=== PATIENT | female | born 2005 | race Caucasian/White ===

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

== ENCOUNTER 2024-03-11 17:39 | Emergency (ER) | payer OTHER, SELFPAY ==
[2024-03-11 17:40] VITALS: BP 105/70; PULSE 85; PULSE 86; RESP 14; TEMP 36.1; O2SAT 100; O2SAT 99; BMI 24.6
--- NOTE | 2024-03-11 18:03 | EDS_ITS ---
HPI <BERRY Mast - Last Filed: 03/11/24 20:49> History of Present Illness Chief Complaint: Laceration Narrative Narrative: Patient presenting today due to a left third finger laceration. She reports that she was using a wood jointer and accidentally got her finger stuck inside. She thinks that her tetanus is up-to-date. She is right-handed. PFSH <BERRY Mast - Last Filed: 03/11/24 20:49> PFSH Medical History Depression Anxiety Home Medications ?Medication ?Instructions ?Recorded ?Last Taken ?Type cephalexin 500 mg capsule 500 mg PO Q8H 7 days #21 CAPSULES 03/11/24 Unknown Rx oxycodone-acetaminophen 5 mg-325 1 tab PO Q8H PRN pain 3 days #10 03/11/24 Unknown Rx mg tablet (Endocet) tabs Allergy/AdvReac Type Severity Reaction Status Date / Time No Known Allergies Allergy Verified 03/11/24 17:44 Surgical History History of ear surgery Social History Smoking Status: Never smoker ROS <BERRY Mast - Last Filed: 03/11/24 20:49> ROS ED Constitutional Constitutional ED: Denies chills or fever(s) Musculoskeletal Musculoskeletal: Reports arthralgias Integumentary Reports laceration Neurologic Neurologic: Denies paresthesias EXAM <BERRY Mast - Last Filed: 03/11/24 20:49> Physical Exam Const Vital Signs: 03/11/24 17:40 03/11/24 17:40 Temperature 97.0 F L Temperature Source Temporal Pulse Rate 85 86 Respiratory Rate 14 14 Blood Pressure 105/70 105/70 Blood Pressure Mean 81 81 Pulse Ox 100 99 Oxygen Delivery Method Room Air Room Air Positive well nourished, well developed and no apparent distress General Appearance ED: well developed HEENT Reports normocephalic and head/scalp atraumatic Mouth ED: Yes moist mucous membranes normal Eyes PERRL and EOMs intact bilaterally Neck full ROM Chest Wall inspection of chest normal Resp normal respiratory effort and clear to auscultation bilaterally Cardio regular rate and regular rhythm Back/Spine normal ROM and normal to inspection Extremity Extremity Narrative: Amputation to the distal phalanx of the left third finger. Left radial pulse 2+, good capillary refill, sensation intact. Neuro oriented x3, CN's II-XII intact bilaterally, moves all extremities, no focal motor deficits and no sensory deficits noted Sensorium / Orientation: awake and alert Psych mental status grossly normal and thought process normal [facility] <BERRY Mast - Last Filed: 03/11/24 20:49> [facility] Narrative Medical decision making narrative: Patient presenting today with a laceration to her left third finger after using a wood jointer this evening. She does have an amputation to the distal phalanx. Her tetanus is up-to-date. She was given a gram of Ancef here. Digital block performed with 1% lidocaine for pain control. We then did discuss the case with orthopedic hand surgeon, he recommends tacking down the remaining dermal tissue over the wound to provide coverage. This was then bandaged and finger was placed in a splint. She tolerated procedure well. She will be given a prescription for Keflex and Percocet. She is to follow-up with Ortho hand. Patient discharged in stable condition. I have personally performed a face to face assessment of the patient and have reviewed the NICKO Note. I performed a substantive portion of the visit including all aspects of the following. My simon findings include: History is [patient presents with injury to the left long finger. Patient states that she was using a joint to her when she accidentally lacerated her finger and amputated the distal tip. Patient is right-hand dominant. She is up-to-date on tetanus.] Exam is [HEENT-PERRLA, EOMI. Cranial nerves II through XII grossly intact. TMs clear. Mucous membranes moist. No adenopathy. Cardiovascular-regular rate and rhythm without murmur or ectopy Lungs-clear to auscultation, chest wall stable without crepitus or subcu emphysema Abdomen-normoactive bowel sounds, soft, nontender, no rebound or rigidity, no peritoneal signs. Extremities-intact ?4, normal range of motion, normal pulses. Left long finger-patient has amputation of the distal phalanx of the long finger. There is a flap of skin volarly pad of the distal phalanx.] Medical Decison Making [patient had a digital block performed with good anesth esia. X-rays of the long finger obtained showed a complete amputation of the distal phalanx and fracture through the head of the middle phalanx that is oblique. I did discuss case with orthopedic hand surgeon Dr. Watson to [facility]. He asked that I temporize the wound and try to obtain coverage with the subcutaneous tissue and dermal tissue that is palmar to cover the exposed middle phalanx. He asked that we start patient on antibiotics and apply splint that he will be happy to see you in the office for formal revision at a later time. Physician office administrative assistant will sutured the flap over the head of the middle phalanx.] Other additions or changes: [None] Radiography X-Ray: Read by ED Physician <Dr. Ale Valdovinos, DO - Last Filed: 03/11/24 18:36> [facility] MDM Narrative Medical decision making narrative: I have personally performed a face to face assessment of the patient and have reviewed the NICKO Note. I performed a substantive portion of the visit including all aspects of the following. My simon findings include: History is [patient presents with injury to the left long finger. Patient states that she was using a joint to her when she accidentally lacerated her finger and amputated the distal tip. Patient is right-hand dominant. She is up-to-date on tetanus.] Exam is [HEENT-PERRLA, EOMI. Cranial nerves II through XII grossly intact. TMs clear. Mucous membranes moist. No adenopathy. Cardiovascular-regular rate and rhythm without murmur or ectopy Lungs-clear to auscultation, chest wall stable without crepitus or subcu emphysema Abdomen-normoactive bowel sounds, soft, nontender, no rebound or rigidity, no peritoneal signs. Extremities-intact ?4, normal range of motion, normal pulses. Left long finger- patient has amputation of the distal phalanx of the long finger. There is a flap of skin volarly pad of the distal phalanx.] Medical Decison Making [patient had a digital block performed with good anesthesia. X-rays of the long finger obtained showed a complete amputation of the distal phalanx and fracture through the head of the middle phalanx that is oblique. I did discuss case with orthopedic hand surgeon Dr. Watson to [facility]. He asked that I temporize the wound and try to obtain coverage with the subcutaneous tissue and dermal tissue that is palmar to cover the exposed middle phalanx. He asked that we start patient on antibiotics and apply splint that he will be happy to see you in the office for formal revision at a later time. Physician office administrative assistant will sutured the flap over the head of the middle phalanx.] Other additions or changes: [None] Procedures <BERRY Mast - Last Filed: 03/11/24 20:49> Lacerations Laceration: Depth: Amputation Shape: Flap Laceration repair: Digital block, Irrigated, Lidocaine, Skin sutures and Wound explored Number of Sutures/Clifton: 5 Suture Information: Ethilon, Simple and 5-0 Discharge Plan Triage Chief Complaint: Laceration ED Midlevel Provider: Ailyn Dubose ED Provider: Ale Valdovinos Dx/Rx/DC Orders Clinical Impression: Amputation of finger tip Instructions: Finger Tip Amputation Open Tx Prescriptions: New oxycodone-acetaminophen [Endocet] 5-325 mg tablet 1 tab PO Q8H PRN (Reason: pain) 3 Days Qty: 10 0RF cephalexin 500 mg capsule 500 mg PO Q8H 7 Days Qty: 21 0RF Primary Care Provider: Azalia Milner Referrals: Azalia Milner MD [Primary Care Provider] - Activity Restrictions/Additional Instructions: Follow-up with Dr. Watson, . Please call Wednesday to make an appointment to be seen. Print Language: Estonian Disposition Disposition: Home, Self Care Discharge Date/Time: 03/11/24 19:27
--- NOTE | 2024-03-11 18:10 | RAD_ITS ---
EXAM: XR LEFT FINGERS, 2 OR MORE VIEWS CLINICAL INDICATION: laceration 3rd finger TECHNIQUE: Frontal, lateral and oblique views of the fingers of the left hand. COMPARISON: No relevant prior studies available. FINDINGS: BONES/JOINTS: Transverse amputation of the third digit through the head of the middle phalanx. Residual soft tissue is present and perhaps minimal bone versus debris in the distal aspect of the residual soft tissue. No subluxation. Otherwise, normal alignment. Preservation of the other joint spaces. No sclerotic or destructive changes observed. SOFT TISSUES: Partial soft tissue amputation of the third digit. Minimal air within the soft tissues. RAD/Finger(s) Min 2 Views IMPRESSION: 1. Transverse amputation of the third digit through the head of the middle phalanx. 2. Residual soft tissue is present and perhaps minimal bone versus debris in the distal aspect of the residual soft tissue. Electronically Signed: Gabino Kc DO at 18:41 EDT ,
[2024-03-11] MEDS: Cefazolin 1 GM/50 ML BAG IV (18:36)
[2024-03-11 19:24] VITALS: BP 107/57; PULSE 87; RESP 18; TEMP 36.1; O2SAT 97
== END 2024-03-11 19:27 | disposition home or self-care (01) ==
PROVIDERS: Emergency Provider Emergency Medicine; PCP Pediatrics; Visit Provider Emergency Medicine
DX: S68.112A Complete traumatic metacarpophalangeal amputation of right middle finger, initial encounter (principal); W26.8XXA Contact with other sharp object(s), not elsewhere classified, initial encounter
CPT/HCPCS: 12002; 73140; 96365; 99284

== ENCOUNTER 2024-05-01 18:30 | Outpatient (RCR) | payer OTHER, SELFPAY ==
--- NOTE | 2024-03-23 12:38 | HP.OTEVAL ---
Patient's Visit Information Visit Information Visit Information: MENDEZ DUNCAN is a 18 year old F, referred to Occupational Therapy by Dr. Maurice Watson MD, with a diagnosis of amputation finger traumatic. Date of Evaluation: 03/23/24 Occupational Therapist: Melissa Recinos Subjective Subjective: Pt was using a jointer and caught her finger in the machine where she cut off the tip of her L middle finger. Sx on 03/16/24, DOI 03/11/24. Pt still has stitches which are dissolvable. Also injured index finger where he was able to clean up the wound and provide stitches. Pt is unaware of any precautions from the doctor following surgery. Pt is reporting 3-4/10 pain. Pt reporting pain is worse when she is doing and after exercises, currently doing AROM flexion/extension, PROM flexion with place and holds, starting to lift light objects like cups to initiate leaf conditioner. No c/o swelling in hand or other digits. No current medications for pain other than ibuprofen. Pt went for f/u on 03/21 where she saw PA and said healing looked good. Can said she can start soaking once 8-10 days out (today is day 7) from surgery to allow for the stitches to come out. Pt is right hand dominant. Pt goals: able to get a full fist and get back to 90% usability. 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 Next f/u appt is this coming Wednesday the . Pt was wearing clam shell splint to cover the end but was taken off on Wednesday and now just to cover it with the gauze. Pain L middle finger: Current Pain Intensity: 3 Pain Intensity Range: 8 ROM MP: R 55, L 65 IP: R 80, L 42 Opposition: B 10 MP: R D2 0/77, L D2 0/55, R D3 0/84, L D3 0/43 PIP: R D2 0/110, L D2 0/48, R D3 0/110, L D3 0/35 DIP: R D2 0/82, L D2 0/25 ROM Comments: CROOKS R D2: 269 CROOKS L D2: 128 CROOKS R D3: 194 CROOKS L D3: 78 Strength Rn Diabetes: R 35#, L 0# Lateral Pinch: R 14#, L 4# Tip-to-Tip Pinch: R 6#, L 1# Nine Hole Peg Right: 20 Left: [id number] Quick DASH-Disab of Arm,Shoulder& Hand Quick DASH Score: 72.7250 Goals Goal:: pt to demo improved L leaf conditioner strength by 15# by d/c for improved ability to leaf conditioner objects using BUE. Goal:: Pt to demo improved CROOKS of D2 by 100* by dc for greater range Goal:: Pt to demo improved CROOKS of D3 by 75* by dc for greater range Goal:: Pt to demo improved L FMC by decreasing 9HPT by 30 seconds to create greater use of dexterity during FM tasks at home. Goal:: Pt to demo improved L thumb IP AROM by 25* for greater leaf conditioner on objects in L hand. Goal:: pt to demo good compliance/carryover of all HEP for motion, wound care, and strengthening. Rehabilitation General Assessment: pt presenting with L D3 distal phalanx amputation following injury sustained when using a jointer while building a table. pt presenting with D2/3 covered lightly with finger stockinette as she has been d/c from clam splint on D3. pt with limited AROM/PROM on L digits including thumb. wrist AROM WFL but tightness noted with digit AROM. pt presents with limited swelling and good intact healing of wound with stitches intact. pt ed on rehab process and continuation of AROM/PROM exercises she was doing previously as well as addition of L thumb IP PROM/AROM. Pt also presenting with limited strength in L leaf conditioner/pinch compared to uninvolved side. Pt would benefit from skilled OT services x 1/week for 2 weeks then x2/week for 4 weeks for initial POC for improved motion, strength and indep in ADLs/IADLs activities. Rehabilitation Potential: Good Anticipated Interventions Anticipated Interventions: A/AAROM/PROM, Strengthening, Scar Care, Massage, Triggerpoint Release, Desensitization, Wound Care and Fine Motor Coord/Sanchez Visit Plan Frequency: 1-2x /Week Duration: 4-6 Weeks General Plan: x/1 week for 2 weeks, x2/weeks for 4 weeks TEXT: Thank you for the opportunity to evaluate your patient. For Medicare and Medicare HMO plans, please review the plan of care and approve it. It will need to be FAXED BACK to us at [phone] for Medicare purposes. Please let me know if there are questions or concerns regarding this plan of care. Physician Signature: Date:
--- NOTE | 2024-05-03 14:54 | HP.OTDCSUM ---
Discharge Summary D/C Summary: It has been my pleasure to treat MENDEZ DUNCAN under orders from HERMELINDO BARDALES, for the diagnosis of amputation finger traumatic for a total of 10 visit(s). Please see the following information for a summary of their discharge status. 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 ( goal met) Goal:: Pt to demo improved CROOKS of D2 by 100* by dc for greater range progressing Goal:: Pt to demo improved CROOKS of D3 by 75* by dc for greater range progressing Goal:: Pt to demo improved L FMC by decreasing 9HPT by 30 seconds to create greater use of dexterity during FM tasks at home. goal met Goal:: Pt to demo improved L thumb IP AROM by 25* for greater retail support manager on objects in L hand. (goal met) Goal:: pt to demo good compliance/carryover of all HEP for motion, wound care, and strengthening. Plan Plan: D/C D/C Information Discharge Comments: pt leaving for college next month. demo understanding of home program and has tolerated therapy well and made significant gains. pt agrees to POC. d/c sentence: If there are questions or concerns regarding this patient's occupational therapy, please fell free to call me at [phone]. Thank you for the referral of this patient. Sincerely, Joyce Chamorro, OTR/L, CHT
== END 2024-05-01 19:00 | disposition home or self-care (01) ==
LOC: OT 18:30
PROVIDERS: PCP Pediatrics
DX: S68.119D Complete traumatic metacarpophalangeal amputation of unspecified finger, subsequent encounter (principal)
CPT/HCPCS: 97110; 97165; 97530